=== PATIENT | male | born 1985 | race Hispanic/Latino ===

== ENCOUNTER 2021-07-20 22:31 | Emergency (ER) | payer OTHER ==
[~2021-07-20] VITALS: Ht 167.6 cm; Wt 72.6 kg
[2021-07-20 22:52] VITALS: BP 115/80
[2021-07-20] MEDS ORDERED: ACETAMINOPHEN 500 MG TABLET PO ONE (23:00)
[2021-07-20] MEDS ORDERED: GUAIFENESIN-DM 200/20 MG 10 ML PO ONE (23:00)
[2021-07-20] MEDS ORDERED: D-ME1POW16 PO (23:16)
== END 2021-07-20 23:21 | disposition home or self-care (01) ==
LOC: EDH 22:31
DX: J06.9 Acute upper respiratory infection, unspecified (principal); R73.9 Hyperglycemia, unspecified; Z88.1 Allergy status to other antibiotic agents; Z90.89 Acquired absence of other organs; Z98.890 Other specified postprocedural states
CPT/HCPCS: 82948; 87804; 87880